=== PATIENT | male | born 1985 | race Caucasian/White ===

== ENCOUNTER 2020-06-12 00:15 | Emergency (ER) | payer OTHER ==
[~2020-06-12] VITALS: Ht 182.9 cm; Wt 83.9 kg
[2020-06-12] MEDS ORDERED: ASPI81CH PO (21:30)
== END 2020-06-12 00:55 | disposition home or self-care (01) ==
LOC: ER 00:15 → EDBD 00:15 → ER 00:55
DX: F32.9 Major depressive disorder, single episode, unspecified (principal); T69.9XXA Effect of reduced temperature, unspecified, initial encounter; Z59.0 Homelessness
CPT/HCPCS: 99283

== ENCOUNTER 2020-06-12 21:20 | Emergency (ER) | payer OTHER ==
[~2020-06-12] VITALS: Ht 180.3 cm; Wt 90.7 kg
[2020-06-12] MEDS ORDERED: ASPI81CH PO (21:30)
== END 2020-06-12 21:59 | disposition left against medical advice (07) ==
LOC: EDBD 21:20 → ER 21:20
DX: Z53.21 Procedure and treatment not carried out due to patient leaving prior to being seen by health care provider (principal)
CPT/HCPCS: 99281